=== PATIENT | male | born 1990 ===

== ENCOUNTER 2022-12-02 08:23 | Inpatient (IN) ==
--- NOTE | 2022-12-02 09:08 | XRay Report ---
XR chest 1V portable CLINICAL HISTORY: Chest pain, nonspecific TECHNIQUE: Single frontal radiograph of the chest was obtained. Comparison: None available at the time of this dictation. FINDINGS: No lines and tubes are seen. The cardiomediastinal silhouette is normal. The lungs are clear. No evid ence of pleural effusion or pneumothorax. IMPRESSION: No acute chest disease. ACT 112: Negative or not required by law. Electronically signed by: Mohinder Ball M.D. 12/02/2022 9:07 AM
--- NOTE | 2022-12-02 09:11 | Emergency Department Note ---
Impression & Plan Left-sided chest pain, Pneumothorax, SOB (shortness of breath), Pleuritic chest pain ED Provider Note NAME: SHIRLEY SALINAS AGE: 32 SEX: M : 1990 ARRIVES VIA: Walk-In INFORMANT: [Patient] ED PROVIDER(S): [Aric Sandoval MD] CHIEF COMPLAINT: Chest pain HISTORY OF PRESENT ILLNESS: The patient is a 32-year-old male presents to the ED with left-sided chest pain that radiates into his shoulder blade since yesterday. The patient states that yesterday in the late afternoon, he went for a bike ride, 15 minutes into the ride, he felt this sharp discomfort in the left chest. He now feels a bit short of breath as well. The pain is worse with a deep breath. There has been no cough, no fever. He did not fall or suffer trauma. He has no history of heart or lung disease. No recent sick contacts. PMHx/PSHx: See Below SOCIAL HISTORY: See Below. PHYSICAL EXAM: GENERAL: Patient is in no acute distress. HEENT: No acute trauma, normocephalic atraumatic, mucous membranes moist, no nasal congestion. NECK: No stridor, no adenopathy, no meningismus, trachea is midline. LUNGS: Breath sounds seem somewhat diminished on the left when compared to the right, no wheezing or rhonchi, no respiratory distress. HEART: Without murmurs gallops or rubs, regular rate and rhythm. ABDOMEN: Soft, nontender, bowel sounds positive, no peritonitis. EXTREMITIES: No cyanosis or edema, full range of motion of all the joints without pain or difficulty, no signs for acute trauma. NEUROLOGIC: Oriented x 3, no acute motor or sensory deficits, no focal weakness. SKIN: No rash, no jaundice, no diaphoresis. DIFFERENTIAL DIAGNOSIS: Pneumothorax, musculoskeletal pain, aortic dissection, PE, [place], among others. EMERGENCY DEPARTMENT COURSE/PROCEDURES: Prior/Outside records reviewed: None. ECG per my interpretation: Indication was chest pain. The ECG shows a sinus bradycardia with a rate of 54. There is no ST elevation, no PVCs. The QTc is 398. Continuous Cardiac Monitoring per my interpretation: An order was placed for continuous cardiac monitoring. The monitor shows a rate of 65 with normal sinus rhythm. MEDICAL DECISION MAKING: There is no leukocytosis or concerning anemia. There is a normal platelet count. No coagulopathy. D-dimer is not elevated making PE less likely. With my low suspicion for PE and the negative D-dimer, I will stop the work-up for this diagnosis. There is no renal failure or significant electrolyte abnormality. No concerning liver enzyme elevation. No evidence for pancreatitis. ECG shows a sinus bradycardia, no ischemia. Cardiac enzyme testing x1 is not consistent with acute cardiac injury. COVID test returned negative. Chest x-ray per my review shows a left sided pneumothorax, no tension pneumothorax per my review. On ex am, the patient was not hypoxic or toxic. He did have some diminished breath sounds on the left. The patient did not require anything for pain. He did receive IV saline for hydration. He has been resting comfortably. I spoke with pulmonary/ICU, Dr. Lane. The patient was seen in the ED by Dr. Lane. He did place a small pigtail chest tube. The patient is to be hospitalized. I spoke with the patient about his findings, I spoke with case management, the on-call hospitalist was consulted. DISPOSITION: Patient's presentation and findings warrant a hospital stay. Past Med/Surg History Medical History No significant past medical history Surgical History (Updated 12/02/22 @ 13:12 by Michael Cabral MD) No significant past surgical history Social History Smoking Status: Never smoker Preferred Language: Mohawk Feels Safe at Home: Yes Allergies Allergies Allergy/AdvReac Type Severity Reaction Status Date / Time No Known Allergies Allergy Unverified 12/02/22 10:02 Home Meds Home Medications Medication Instructions Recorded Confirmed cetirizine 10 mg tablet 10 mg PO DAILY PRN Allergy Symptoms 12/02/22 12/02/22 Results & Data (ED) Vital Signs Vital Signs - 24 hr 12/02/22 08:26 12/02/22 08:45 12/02/22 08:42 Temperature 36.0 C L Temperature Source Temporal Artery Scan Pulse Rate 64 59 L Pulse Rate [Apical] Pulse Rate from SpO2 Sensor Respiratory Rate 20 Respiratory Effort / Characteristics Non-Labored Spontaneous Respiratory Depth Normal Blood Pressure 128/76 Blood Pressure Mean 93 Pulse Oximetry 100 96 Oxygen Delivery Method Room Air Room Air Sepsis New/Unexplained Change in Mental Status N/A Sepsis Action Taken by Nursing No Action Required 12/02/22 08:47 12/02/22 08:44 12/02/22 08:50 Temperature Temperature Source Pulse Rate 62 58 L Pulse Rate [Apical] 65 Pulse Rate from SpO2 Sensor 63 61 Respiratory Rate 18 18 23 Respiratory Effort / Characteristics Respiratory Depth Normal Blood Pressure Blood Pressure Mean Pulse Oximetry 98 98 98 Oxygen Delivery Method Room Air Sepsis New/Unexplained Change in Mental Status Sepsis Action Taken by Nursing 12/02/22 09:00 12/02/22 09:10 12/02/22 09:20 Temperature Temperature Source Pulse Rate 58 L 56 L 59 L Pulse Rate [Apical] Pulse Rate from SpO2 Sensor 56 L 55 L 58 L Respiratory Rate 15 15 18 Respiratory Effort / Characteristics Respiratory Depth Blood Pressure Blood Pressure Mean Pulse Oximetry 99 99 99 Oxygen Delivery Method Sepsis New/Unexplained Change in Mental Status Sepsis Action Taken by Nursing 12/02/22 09:30 12/02/22 09:40 12/02/22 09:50 Temperature Temperature Source Pulse Rate 55 L 56 L 66 Pulse Rate [Apical] Pulse Rate from SpO2 Sensor 55 L 56 L 65 Respiratory Rate 19 18 23 Respiratory Effort / Characteristics Respiratory Depth Blood Pressure Blood Pressure Mean Pulse Oximetry 98 99 99 Oxygen Delivery Method Sepsis New/Unexplained Change in Mental Status Sepsis Action Taken by Nursing 12/02/22 10:00 12/02/22 10:42 12/02/22 10:10 Temperature Temperature Source Pulse Rate 71 63 53 L Pulse Rate [Apical] Pulse Rate from SpO2 Sensor 67 53 L Respiratory Rate 21 16 22 Respiratory Effort / Characteristics Respiratory Depth Blood Pressure Blood Pressure Mean Pulse Oximetry 100 96 100 Oxygen Delivery Method Room Air Sepsis New/Unexplained Change in Mental Status Sepsis Action Taken by Nursing 12/02/22 10:20 12/02/22 10:30 12/02/22 10:40 Temperature Temperature Source Pulse Rate 62 54 L 64 Pulse Rate [Apical] Pulse Rate from SpO2 Sensor 62 55 L 64 Respiratory Rate 17 14 14 Respiratory Effort / Characteristics Respiratory Depth Blood Pressure 136/89 Blood Pressure Mean 104 Pulse Oximetry 100 98 98 Oxygen Delivery Method Sepsis New/Unexplained Change in Mental Status Sepsis Action Taken by Nursing 12/02/22 10:42 12/02/22 10:44 12/02/22 10:45 Temperature Temperature Source Pulse Rate 63 64 54 L Pulse Rate [Apical] Pulse Rate from SpO2 Sensor 62 63 57 L Respiratory Rate 22 20 18 Respiratory Effort / Characteristics Respiratory Depth Blood Pressure Blood Pressure Mean Pulse Oximetry 100 98 100 Oxygen Delivery Method Sepsis New/Unexplained Change in Mental Status Sepsis Action Taken by Nursing 12/02/22 10:45 12/02/22 10:46 12/02/22 10:48 Temperature Temperature Source Pulse Rate 64 68 Pulse Rate [Apical] Pulse Rate from SpO2 Sensor 69 66 Respiratory Rate 20 22 Respiratory Effort / Characteristics Respiratory Depth Blood Pressure 139/88 Blood Pressure Mean 105 Pulse Oximetry 100 98 Oxygen Delivery Method Sepsis New/Unexplained Change in Mental Status Sepsis Action Taken by Nursing 12/02/22 10:50 12/02/22 10:52 12/02/22 10:54 Temperature Temperature Source Pulse Rate 62 62 52 L Pulse Rate [Apical] Pulse Rate from SpO2 Sensor 64 63 53 L Respiratory Rate 14 15 12 Respiratory Effort / Characteristics Respiratory Depth Blood Pressure Blood Pressure Mean Pulse Oximetry 98 100 100 Oxygen Delivery Method Sepsis New/Unexplained Change in Mental Status Sepsis Action Taken by Nursing 12/02/22 10:56 12/02/22 10:58 12/02/22 11:00 Temperature Temperature Source Pulse Rate 58 L 60 64 Pulse Rate [Apical] Pulse Rate from SpO2 Sensor 58 L 61 62 Respiratory Rate 17 20 15 Respiratory Effort / Characteristics Respiratory Depth Blood Pressure Blood Pressure Mean Pulse Oximetry 100 99 100 Oxygen Delivery Method Sepsis New/Unexplained Change in Mental Status Sepsis Action Taken by Nursing 12/02/22 11:02 12/02/22 11:04 12/02/22 11:06 Temperature Temperature Source Pulse Rate 56 L 55 L 63 Pulse Rate [Apical] Pulse Rate from SpO2 Sensor 60 55 L 64 Respiratory Rate 19 22 23 Respiratory Effort / Characteristics Respiratory Depth Blood Pressure Blood Pressure Mean Pulse Oximetry 100 99 98 Oxygen Delivery Method Sepsis New/Unexplained Change in Mental Status Sepsis Action Taken by Nursing 12/02/22 11:08 12/02/22 11:10 12/02/22 11:12 Temperature Temperature Source Pulse Rate 68 61 71 Pulse Rate [Apical] Pulse Rate from SpO2 Sensor 63 64 68 Respiratory Rate 18 16 20 Respiratory Effort / Characteristics Respiratory Depth Blood Pressure Blood Pressure Mean Pulse Oximetry 100 100 93 Oxygen Delivery Method Sepsis New/Unexplained Change in Mental Status Sepsis Action Taken by Nursing 12/02/22 11:14 12/02/22 11:16 12/02/22 11:18 Temperature Temperature Source Pulse Rate 73 60 77 Pulse Rate [Apical] Pulse Rate from SpO2 Sensor 72 62 78 Respiratory Rate 23 18 21 Respiratory Effort / Characteristics Respiratory Depth Blood Pressure Blood Pressure Mean Pulse Oximetry 100 98 96 Oxygen Delivery Method Sepsis New/Unexplained Change in Mental Status Sepsis Action Taken by Nursing 12/02/22 11:20 12/02/22 11:22 12/02/22 11:24 Temperature Temperature Source Pulse Rate 66 57 L 65 Pulse Rate [Apical] Pulse Rate from SpO2 Sensor 65 59 L 68 Respiratory Rate 20 16 17 Respiratory Effort / Characteristics Respiratory Depth Blood Pressure Blood Pressure Mean Pulse Oximetry 95 100 99 Oxygen Delivery Method Sepsis New/Unexplained Change in Mental Status Sepsis Action Taken by Nursing 12/02/22 11:26 12/02/22 11:28 12/02/22 11:30 Temperature Temperature Source Pulse Rate 63 68 56 L Pulse Rate [Apical] Pulse Rate from SpO2 Sensor 69 67 63 Respiratory Rate 14 23 18 Respiratory Effort / Characteristics Respiratory Depth Blood Pressure Blood Pressure Mean Pulse Oximetry 94 100 100 Oxygen Delivery Method Sepsis New/Unexplained Change in Mental Status Sepsis Action Taken by Nursing 12/02/22 11:32 12/02/22 11:34 12/02/22 11:35 Temperature Temperature Source Pulse Rate 62 63 59 L Pulse Rate [Apical] Pulse Rate from SpO2 Sensor 68 62 59 L Respiratory Rate 20 23 15 Respiratory Effort / Characteristics Respiratory Depth Blood Pressure Blood Pressure Mean Pulse Oximetry 92 99 99 Oxygen Delivery Method Sepsis New/Unexplained Change in Mental Status Sepsis Action Taken by Nursing 12/02/22 11:35 12/02/22 11:36 Temperature Temperature Source Pulse Rate 56 L Pulse Rate [Apical] Pulse Rate from SpO2 Sensor 57 L Respiratory Rate 17 Respiratory Effort / Characteristics Respiratory Depth Blood Pressure 169/85 H Blood Pressure Mean 113 Pulse Oximetry 100 Oxygen Delivery Method Sepsis New/Unexplained Change in Mental Status Sepsis Action Taken by Correction Medications Current Medication List: was personally reviewed by me Laboratory Data Attestation: I reviewed the patient's lab results. 12/02/22 08:50 12/02/22 08:50 Lab Results 12/02/22 12/02/22 12/02/22 Range/Units 08:50 08:50 08:50 WBC 7.66 (4.8-10.8) K/ul RBC 5.21 (4.70-6.10) M/uL Hgb 16.3 (14.0-18.0) g/dl Hct 47.2 (42.0-52.0) % MCV 90.6 (80.0-100.0) fL MCH 31.3 (25.0-34.0) pg MCHC 34.5 (32.0-36.0) g/dL RDW Std Deviation 41.3 (36.4-46.3) fL RDW Coeff of Iris 12.5 (11.5-14.5) % Plt Count 232 (130-400) K/uL MPV 10.3 (9.4-12.4) fL Immature Gran % (Auto) 0.3 % Neut % (Auto) 65.1 % Lymph % (Auto) 21.9 % Barry % (Auto) 6.5 % Eos % (Auto) 5.5 % Baso % (Auto) 0.7 % Neut # (Auto) 4.99 (1.40-6.50) K/uL Lymph # (Auto) 1.68 (1.2-3.4) K/uL Barry # (Auto) 0.50 (0.11-0.59) K/uL Eos # (Auto) 0.42 (0-0.50) K/uL Baso # (Auto) 0.05 (0-0.2) K/uL Immature Gran # (Auto) 0.02 (0.01-0.20) K/uL PT 11.6 (9.0-12.0) Seconds INR 1.1 (0.9-1.1) APTT 27.7 (21.0-31.0) Seconds PTT Ratio 1.0 D-Dimer < 190 (0-500) ug/L FEU Sodium 140 (136-145) mmol/L Potassium 4.0 (3.5-5.1) mmol/L Chloride 104 (98-107) mmol/L Carbon Dioxide 29 (21-32) mmol/L Anion Gap 7 (3-11) BUN 23 (6-23) mg/dl Creatinine 0.95 (0.6-1.4) mg/dl Est Cr Clr Drug Dosing 99.1 ml/min Est GFR ( Amer) 123.1 ml/min Est GFR (Non-Af Amer) 106.2 ml/min BUN/Creatinine Ratio 24.2 H (10-20) Glucose 82 (70-99(Fasting)) mg/dl Calcium 9.5 (8.6-10.3) mg/dl Magnesium 2.0 (1.7-2.4) mg/dl Total Bilirubin 0.7 (0.2-1.0) mg/dl AST 20 (13-39) U/L ALT 21 (7-52) U/L Alkaline Phosphatase 48 (34-104) U/L Troponin I High Sens 18.8 (0-20) pg/ml Total Protein 7.5 (6.0-8.3) gm/dl Albumin 5.0 (3.4-5.0) gm/dl Globulin 2.5 (2.5-4.0) gm/dl Albumin/Globulin Ratio 2.0 (0.9-2) Lipase 11 (11-82) U/L SARS-CoV-2, RNA, NAAT (NEGATIVE) 12/02/22 Range/Units 08:50 WBC (4.8-10.8) K/ul RBC (4.70-6.10) M/uL Hgb (14.0-18.0) g/dl Hct (42.0-52.0) % MCV (80.0-100.0) fL MCH (25.0-34.0) pg MCHC (32.0-36.0) g/dL RDW Std Deviation (36.4-46.3) fL RDW Coeff of Iris (11.5-14.5) % Plt Count (130-400) K/uL MPV (9.4-12.4) fL Immature Gran % (Auto) % Neut % (Auto) % Lymph % (Auto) % Barry % (Auto) % Eos % (Auto) % Baso % (Auto) % Neut # (Auto) (1.40-6.50) K/uL Lymph # (Auto) (1.2-3.4) K/uL Barry # (Auto) (0.11-0.59) K/uL Eos # (Auto) (0-0.50) K/uL Baso # (Auto) (0-0.2) K/uL Immature Gran # (Auto) (0.01-0.20) K/uL PT (9.0-12.0) Seconds INR (0.9-1.1) APTT (21.0-31.0) Seconds PTT Ratio D-Dimer (0-500) ug/L FEU Sodium (136-145) mmol/L Potassium (3.5-5.1) mmol/L Chloride (98-107) mmol/L Carbon Dioxide (21-32) mmol/L Anion Gap (3-11) BUN (6-23) mg/dl Creatinine (0.6-1.4) mg/dl Est Cr Clr Drug Dosing ml/min Est GFR ( Amer) ml/min Est GFR (Non-Af Amer) ml/min BUN/Creatinine Ratio (10-20) Glucose (70-99(Fasting)) mg/dl Calcium (8.6-10.3) mg/dl Magnesium (1.7-2.4) mg/dl Total Bilirubin (0.2-1.0) mg/dl AST (13-39) U/L ALT (7-52) U/L Alkaline Phosphatase (34-104) U/L Troponin I High Sens (0-20) pg/ml Total Protein (6.0-8.3) gm/dl Albumin (3.4-5.0) gm/dl Globulin (2.5-4.0) gm/dl Albumin/Globulin Ratio (0.9-2) Lipase (11-82) U/L SARS-CoV-2, RNA, NAAT NEGATIVE (NEGATIVE) Administered Medications Discontinued Medications Atropine Sulfate (Atropine So4 1 Mg/Ml 1ml Vial) Confirm Administered Dose 1 mg .ROUTE .STK-MED ONE Stop: 12/02/22 11:21 Last Admin: 12/02/22 12:52 Dose: Not Given Documented By: ARS Sodium Chloride (Nss 1000ml) 1,000 mls @ 999 mls/hr IV .Q1H1M ONE Stop: 12/02/22 12:15 Last Infusion: 12/02/22 14:24 Dose: 0 mls/hr Documented By: Admin: 12/02/22 11:21 Dose: 999 mls/hr Documented By: JD Lidocaine HCl (Lidocaine 1% Local 20 Ml Vial) Confirm Administered Dose 1 ml .RO SALAMATOF .STK-MED ONE Stop: 12/02/22 11:42 Last Admin: 12/02/22 12:01 Dose: Not Given Documented By: AM Lidocaine HCl (Lidocaine 1% Local 20 Ml Vial) 20 ml INJ NOW ONE Stop: 12/02/22 11:52 Last Admin: 12/02/22 11:45 Dose: 20 ml Documented By: AM Imaging Data Radiologist's Impression: Chest X-Ray 12/02/22 08:42 XR chest 1V portable CLINICAL HISTORY: Chest pain, nonspecific TECHNIQUE: Single frontal radiograph of the chest was obtained. Comparison: None available at the time of this dictation. FINDINGS: No lines and tubes are seen. The cardiomediastinal silhouette is normal. The lungs are clear. No evidence of pleural effusion or pneumothorax. IMPRESSION: No acute chest disease. ACT 112: Negative or not required by law. Electronically signed by: Mohinder Ball M.D. 12/02/2022 9:07 AM ADDENDUM There is a prominent left apical pneumothorax measuring up to 4.9 cm. Electronically signed by: Mohinder Ball M.D. 12/02/2022 9:26 AM ADDENDUM END XR chest 1V portable CLINICAL HISTORY: Chest pain, nonspecific TECHNIQUE: Single frontal radiograph of the chest was obtained. Comparison: None available at the time of this dictation. FINDINGS: No lines and tubes are seen. The cardiomediastinal silhouette is normal. The lungs are clear. No evidence of pleural effusion or pneumothorax. IMPRESSION: No acute chest disease. Discharge Plan Visit Data Chief Complaint: Chest Pain Stated Complaint: CHEST PAINS,COUGHING,SOB ED Provider: Aric Sandoval Discharge Problem: Left-sided chest pain, Pneumothorax, SOB (shortness of breath), Pleuritic chest pain Patient Disposition: Admitted As Inpatient Condition: Good Discharge Instructions Interventions: ED Discharge Assessment Last Done: 12/02/22 13:52
[2022-12-02 09:16] LABS: Basophils # (auto) 0.05 K/uL (0-0.2); Basophils % (auto) 0.7 %; Eosinophils # (auto) 0.42 K/uL (0-0.50); Eosinophils % (auto) 5.5 %; Hematocrit (blood only) 47.2 % (42.0-52.0); Hemoglobin 16.3 g/dl (14.0-18.0); Immature Granulocytes # (auto) 0.02 K/uL (0.01-0.20); Immature Granulocytes % (auto) 0.3 %; Lymphocytes # (auto) 1.68 K/uL (1.2-3.4); Lymphocytes % (auto) 21.9 %; Mean Corpuscular Hemoglobin 31.3 pg (25.0-34.0); Mean Corpuscular Hgb Conc 34.5 g/dL (32.0-36.0); Mean Corpuscular Volume 90.6 fL (80.0-100.0); Mean Platelet Volume 10.3 fL (9.4-12.4); Monocytes % (auto) 6.5 %; Neutrophils # (auto) 4.99 K/uL (1.40-6.50); Neutrophils % (auto) 65.1 %; Platelet Count 232 K/uL (130-400); RDW Coefficient of Variation 12.5 % (11.5-14.5); RDW Standard Deviation 41.3 fL (36.4-46.3); Red Blood Count 5.21 M/uL (4.70-6.10); White Blood Count 7.66 K/ul (4.8-10.8)
[2022-12-02 09:31] LABS: Bilirubin,Total 0.7 mg/dl (0.2-1.0); Calcium 9.5 mg/dl (8.6-10.3)
--- NOTE | 2022-12-02 09:31 | Pulmonary Consultation ---
Date of Consultation December 02, 2022 Assessment & Plan (1) Primary spontaneous pneumothorax: (2) Chest pain: Plan Chest x-ray 12/02/2022 personally reviewed: Portable film, left-sided pneumothorax, lateral separation of 1.1 cm -- Primary spontaneous pneumothorax S/p chest tube placement 12/02/2022 Patient should avoid scuba diving, flying, heavy lifting for at least 6 weeks Plan:- Chest tube placed in the ER. Patient tolerated the procedure well [facility] If there is still apical pneumothorax on the repeat chest x-ray then we will connected to -20 cm H2O suction We will do CT chest without contrast tomorrow to see if the patient has any apical blebs Please note the above document was generated using voice recognition software. It may contain grammatical, syntax or spelling errors.Any formal questions or concerns about the content, text or information contained within the body of this dictation should be directly addressed to the provider for clarification. History of Present Illness History of Present Illness 32-year-old male coming to hospital for chest pain left-sided Past medical history: Noncontributory Patient had a chest x-ray done in the ER which showed left-sided pneumothorax ER doc consulted pulmonary for further care At the time of examination patient was saturating 99% on 2 L nasal cannula. He complained of retrosternal left-sided chest pain going to the back. It started yesterday when he was bicycling. Denies any history of trauma. No heavy lifting He does workout on a regular basis which is usually running and bicycling Never had any instance like that before in the past No fever or chills No headache, no blurry vision No night sweats, no unintentional weight loss No known history of ILD Social history: Lifetime non-smoker. No vaping, no illicit drug use. No history of asthma History of COPD in the family especially paternal side who are smokers Allergies Allergy/AdvReac Type Severity Reaction Status Date / Time No Known Allergies Allergy Unverified 12/02/22 10:02 Home Medications Medication Instructions Recorded Confirmed Type cetirizine 10 mg tablet 10 mg PO DAILY PRN Allergy Symptoms 12/02/22 12/02/22 History Patient History Medical History (Updated 12/02/22 @ 15:[address] MD, FCCP) No significant past medical history Surgical History (Updated 12/02/22 @ 13:12 by Michael Cabral MD) No significant past surgical history Social History Smoking Status: Never smoker Preferred Language: Kenyan Feels Safe at Home: Yes Review of Systems Review of Systems: All systems reviewed & are unremarkable except as noted in HPI & below Physical Exam Physical Exam: Constitutional: No acute distress HEENT: EOMI, PERRLA, no subcu emphysema Respiratory system: Mild decreased air entry on the left, no wheeze, no rhonchi, no crackles CVS: S1-S2 positive, no murmurs or gallops Abdomen: Soft, nontender, nondistended, positive bowel sounds x4 Extremities: +2 pulses bilaterally radialis/ dorsalis pedis, no cyanosis, no edema Neuro: Awake alert oriented x3 Psych: Normal mood and affect G/U: No Jimenes Skin: no rashes, warm and dry Lymphatic: no cervical or axillary lymphadenopathy Results & Data Results & Data Vital Signs (Past 12 Hours) Vital Signs Temp Pulse Pulse Resp BP Pulse Ox O2 Del Method 12/02/22 08:47 65 18 98 Room Air 12/02/22 08:42 96 Room Air 12/02/22 08:45 59 L 12/02/22 08:26 36.0 C L 64 20 128/76 100 Room Air Laboratory Results 12/02/22 08:50 PG Care Time/CCT Total # of Minutes Spent Total Time Spent with Patient: Total time spent is greater than 50% in coordination of care (as documented) at patient's floor/unit and/or counseling patient: Coding Level of Care Code 83350 INT INP/OBS CARE 3/75MIN Diagnoses Primary spontaneous pneumothorax J93.11 Chest pain R07.9
[2022-12-02 09:38] LABS: BUN Creatinine Ratio 24.2 (10-20); Creatinine Clr Calc Pharmacy 99.1 ml/min; Est GFR (African American) 123.1 ml/min; Est GFR (Non-African American) 106.2 ml/min; Globulin 2.5 gm/dl (2.5-4.0); Total Protein 7.5 gm/dl (6.0-8.3)
[2022-12-02 09:42] LABS: Troponin I High Sensitivity 18.8 pg/ml (0-20)
[2022-12-02 09:48] LABS: D Dimer < 190 ug/L FEU (0-500); INR 1.1 (0.9-1.1); Partial Thromboplastin Time 27.7 Seconds (21.0-31.0); Prothrombin Time 11.6 Seconds (9.0-12.0)
[2022-12-02] MEDS ORDERED: SODIUM CHLORIDE 0.9% 1000ML 1,000 ML IV ONE (11:15)
[2022-12-02] MEDS ORDERED: ATROPINE SULFATE 0.1 MG/ML 10ML SYR IV PRN (11:15)
[2022-12-02] MEDS ORDERED: ATROPINE SO4 1 MG/ML 1ML VIAL ONE (11:20)
--- NOTE | 2022-12-02 11:36 | History & Physical Report ---
Date of Service December 02, 2022 Assessment & Plan (1) Primary spontaneous pneumothorax: Plan: Pigtail chest tube inserted by pulmonology. Repeat CXR show improvement. Appreciate pulmonology ongoing management of this. Acetaminophen as needed for pain, will add NSAID if not controlled with this Plan VTE Prophylaxis - low risk Diet - regular Disposition - admit to med/tele Admission and Anticipated Discharge Date Admission Date: December 02, 2022 History of Present Illness Chief Complaint: Chest pain Primary Care Provider: NO PCP Chip Lorenzana is a 32 year old male who presents to the ER with chest pain. Started yesterday while riding his bike on the left side of his chest radiating to his left shoulder blade. Mild associated shortness of breath. No diaphoresis or nausea. CXR in the ER showing left sided pneumothorax. he has never had this before. No recent upper respiratory illness. No vaping or smoking history. Pulmonology were contacted and pigtail chest tube inserted. Patient seen after chest tube insertion and doing well. Two grandparents with COPD but otherwise no significant family history. Allergies Allergy/AdvReac Type Severity Reaction Status Date / Time No Known Allergies Allergy Unverified 12/02/22 10:02 Home Medications Medication Instructions Recorded Confirmed Type cetirizine 10 mg tablet 10 mg PO DAILY PRN Allergy Symptoms 12/02/22 12/02/22 History Past Med/Surg History Medical History (Updated 12/02/22 @ 13:12 by Michael Cabral MD) No significant past medical history Surgical History (Updated 12/02/22 @ 13:12 by Michael Cabral MD) No significant past surgical history Social History Smoking Status: Never smoker Preferred Language: Maltese Feels Safe at Home: Yes Review of Systems Review of Systems: All systems reviewed & are unremarkable except as noted in HPI & below Physical Exam Constitutional: WD/WN, vitals as above Respiratory: normal respiratory effort; no respiratory distress Auscultation: + diminished lung sounds (left apex); no crackles and no wheezes Cardiovascular: RRR, no murmur, no edema Gastrointestinal (Abdomen): normal bowel sounds, soft, nontender, no hepatosplenomegaly Psychiatric: A+Ox3, euthymic affect Results & Data Results & Data Vital Signs (Past 12 Hours) Vital Signs Temp Pulse Pulse Resp BP Pulse Ox O2 Del Method 12/02/22 10:40 64 14 136/89 98 12/02/22 10:30 54 L 14 98 12/02/22 10:20 62 17 100 12/02/22 10:10 53 L 22 100 12/02/22 10:42 63 16 96 Room Air 12/02/22 10:00 71 21 100 12/02/22 09:50 66 23 99 12/02/22 09:40 56 L 18 99 12/02/22 09:30 55 L 19 98 12/02/22 09:20 59 L 18 99 12/02/22 09:10 56 L 15 99 12/02/22 09:00 58 L 15 99 12/02/22 08:50 58 L 23 98 12/02/22 08:44 62 18 98 12/02/22 08:47 65 18 98 Room Air 12/02/22 08:42 96 Room Air 12/02/22 08:45 59 L 12/02/22 08:26 36.0 C L 64 20 128/76 100 Room Air Laboratory Results Abnormal lab results 12/02/22 Range/Units 08:50 BUN/Creatinine Ratio 24.2 H (10-20) Diagnostic Findings ADDENDUM There is a prominent left apical pneumothorax measuring up to 4.9 cm. Electronically signed by: Mohinder Ball M.D. 12/02/2022 9:26 AM ADDENDUM END XR chest 1V portable CLINICAL HISTORY: Chest pain, nonspecific TECHNIQUE: Single frontal radiograph of the chest was obtained. Comparison: None available at the time of this dictation. FINDINGS: No lines and tubes are seen. The cardiomediastinal silhouette is normal. The lungs are clear. No evidence of pleural effusion or pneumothorax. IMPRESSION: No acute chest disease. Medications Administered ER Medications Given: NSS 1L bolus ECG Rate (beats per minute): 54 Rhythm: sinus bradycardia Findings: no acute ischemic change Comparison ECG Date: no prior available Code Status & VTE Plan Code Status Full VTE Prophylaxis Plan VTE Prophylaxis will be ordered: No PG Care Time/CCT Total # of Minutes Spent Total Time Spent with Patient: Total time spent is greater than 50% in coordination of care (as documented) at patient's floor/unit and/or counseling patient: Coding Level of Care Code 92139 INT INP/OBS CARE Diagnoses Primary spontaneous pneumothorax J93.11
[2022-12-02] MEDS ORDERED: LIDOCAINE 1% LOCAL 20 ML VIAL ONE (11:41)
[2022-12-02] MEDS ORDERED: LIDOCAINE 1% LOCAL 20 ML VIAL INJ ONE (11:51)
--- NOTE | 2022-12-02 12:13 | Procedure Note ---
Procedure Note Date of Service December 02, 2022 Note Procedure: Pigtail chest tube insertion [employer] Sergeant: Dr. Karen Lane Indication: Left-sided pneumothorax Consent: Signed by patient and verified with timeout prior to procedure Anesthesia: 1% lidocaine without epinephrine local Procedure: Consent was verified and timeout performed. Appropriate imaging studies were reviewed prior to the procedure. Patient was placed in a seated position. Appropriate site above the diaphragm on the left midaxillary line fourth intercostal space for chest tube insertion was selected. The skin was prepped and draped in normal sterile fashion. Lidocaine was used for local analgesia. Air was aspirated via the finder needle. A small skin ada was made with the scalpel and the catheter over the needle apparatus was advanced over the rib into the pleural space. With the help of guidewire and Seldinger technique, 14 Prydeinig pigtail catheter was inserted and connected to Pleur-evac. No air leak appreciated after that. Chest x-ray to follow The patient tolerated the procedure without obvious complication Complications: None Blood loss: Less than 1 cc. Coding CPT Codes Pulmonary/Thoracic - Pulmonary and Thoracic: 09510 Tube thoracostomy ([id number]) [facility] [place] ([place]arges) Pulmonary/Thoracic Procedure 1: Pulmonary and Thoracic: 70905 Tube thoracostomy
--- NOTE | 2022-12-02 12:23 | XRay Report ---
XR chest 1V portable HISTORY: 32 years-old Male s/p RIGHT sided chest tube status post placement of a left-sided chest tu be COMPARISON: 12/02/2022 TECHNIQUE: AP view of the chest FINDINGS: Cardiomediastinal and hilar silhouettes are within normal limits. Status post placement of a left-boubacar ed chest tube with distal tip projected inferior to the left hilum. There is decreased size of left a pical pneumothorax now with pleural separation of 2.1 cm, previously approximately 5 cm. Bones appear grossly intact. No pleural effusion or airspace consolidation. IMPRESSION: Status post placement of a left-sided chest tube with small left apical pneumothorax, dec reased in size from comparison. ACT 112: Negative or not required by law. The above report was generated using voice recognition software. It may contain grammatical, syntax o r spelling errors. Electronically signed by: Elie Willard M.D. 12/02/2022 12:22 PM
[2022-12-02] MEDS ORDERED: CETIRIZINE HCL 10 MG TABLET PO PRN (14:22)
[2022-12-02] MEDS: ACETAMINOPHEN 325 MG TAB PO PRN ×2 (15:11→20:39)
[2022-12-02] MEDS: KETOROLAC TROMETHAMINE 15 MG/ML VIAL IV PRN (17:50)
[2022-12-03] MEDS: KETOROLAC TROMETHAMINE 15 MG/ML VIAL IV PRN ×3 (00:28→18:15)
--- NOTE | 2022-12-03 05:34 | Electrocardiogram Report ---
Test Reason : Blood Pressure : / mmHG Vent. Rate : 054 BPM Atrial Rate : 054 BPM P-R Int : 160 ms QRS Dur : 092 ms QT Int : 420 ms P-R-T Axes : 067 071 070 degrees QTc Int : 398 ms Sinus bradycardia Otherwise normal ECG No previous ECGs available Confirmed by Mart Ramires ([id number]) on 12/03/2022 5:34:02 AM Referred By: Confirmed By:Mart Ramires
--- NOTE | 2022-12-03 08:16 | XRay Report ---
XR chest 1V portable HISTORY: 32 years-old Male f/u follow-up study in a patient with left-sided pneumothorax COMPARISON: 12/02/2022 TECHNIQUE: AP view of the chest FINDINGS: The left-sided chest tube has been pulled back, now with distal tip overlying the lateral aspect of l eft lung base. Left apical pneumothorax again noted with pleural separation of 3.5 cm, previously alejandra roximately 2.1 cm. The cardiomediastinal and hilar silhouettes are within normal limits. The right guillermina ng is clear. No pleural effusion or airspace consolidation. Bones appear grossly intact. IMPRESSION: Repositioning of the left-sided chest tube with slightly increased size of the left apica l pneumothorax. ACT 112: Negative or not required by law. The above report was generated using voice recognition software. It may contain grammatical, syntax o r spelling errors. Electronically signed by: Elie Willard M.D. 12/03/2022 8:15 AM
--- NOTE | 2022-12-03 10:57 | Pulmonology Progress Note ---
Date of Service December 03, 2022 Assessment & Plan (1) Primary spontaneous pneumothorax: (2) Pneumothorax: Pneumothorax type: spontaneous, primary Qualified Code(s): J93.11 - Primary spontaneous pneumothorax (3) SOB (shortness of breath): (4) Left-sided chest pain: Plan IMPRESSION: 32-year-old male presenting with primary spontaneous LEFT-sided pneumothorax who is status post pigtail catheter placement yesterday. RECOMMENDATIONS: 1. Primary spontaneous pneumothorax - * Chest x-ray this morning reveals persistent LEFT-sided apical pneumothorax. Chest tube migrated out a bit. * Chest tube to be repositioned. * CT Chest ordered for further evaluation of lung parenchyma. * There continues to be no airleak. He remains on -20 cm H2O suction. * Otherwise, he is doing well and without significant pain. Thank you for allowing us to participate in the care of this patient. We will continue to manage pneumothorax. Admission and Anticipated Discharge Date Admission Date: December 02, 2022 Supervising Physician Co-Signing Physician Notes I saw and evaluated the patient with Byron Cedillo PA-C, and agree with findings and plan as documented in the note. Patient seen and examined at bedside. No acute distress, no adverse events overnight Denied any significant chest pain, no shortness of breath Mild discomfort at the site of the chest tube Patient's tube was connected to suction -20. There was no continuous bubbling. Constitutional: No acute distress HEENT: EOMI, PERRLA,no subcu emphysema Respiratory system:Good air entry bilaterally, no wheeze, no rhonchi, no crackles CVS: S1-S2 positive, no murmurs or gallops Abdomen: Soft, nontender, nondistended, positive bowel sounds x4 Extremities: +2 pulses bilaterally radialis/ dorsalis pedis, no cyanosis, no edema Neuro: Awake alert oriented x3 Psych: Normal mood and affect G/U: No Jimenes Plan: Chest x-ray from today shows retraction of the chest tube little bit. It is still in the pleural space. I reposition the tube and dressed it with aseptic precaution We will do a CT chest without contrast today to see if there is anatomical abnormality Please note the above document was generated using voice recognition software. It may contain grammatical, syntax or spelling errors.Any formal questions or concerns about the content, text or information contained within the body of this dictation should be directly addressed to the provider for clarification. Subjective Patient seen and evaluated by myself bedside. He is awake, alert, and oriented. He complains of some ongoing LEFT-sided chest discomfort which is worse with deep inspiration. It is unchanged from prior. Otherwise, he had a great night and states that he was able to sleep with laying on his RIGHT side. Review of Systems Review of Systems: A complete 6 point review of systems was reviewed with the patient with pertinent positives and negatives as per history of present illness. All else were negative. Physical Exam Physical Exam: VITAL SIGNS - Vital signs and nursing notes were reviewed. GENERAL - 32-year-old male appearing his stated age who is in no acute distress. Communicates well with provider and answers questions appropriately. SKIN - LEFT sided chest tube dressing clean, dry, and intact. LUNGS - LEFT sided chest tube in place. No air leak appreciated. Auscultation reveals clear to auscultation bilaterally. CARDIAC - RRR with S1/S2. No murmur, rubs, or gallops appreciated. ABDOMEN - BS normoactive all four quadrants. No tenderness, palpable masses, or ascites noted. PSYCH - A&Ox3 and cooperates fully with examiner. Pt is very pleasant and interacts well with examiner. Skin: no rashes, warm and dry Lymphatic: no cervical or axillary lymphadenopathy Results & Data Results & Data Vital Signs (Past 12 Hours) Vital Signs Temp Pulse Pulse Resp BP Pulse Ox O2 Del Method 12/03/22 08:20 36.7 C 87 16 158/100 H 98 Room Air 12/03/22 06:00 41 L 12/03/22 03:15 36.5 C 43 L 18 109/70 98 Room Air 12/02/22 23:32 53 L Laboratory Results 12/02/22 08:50 12/02/22 08:50 PG Care Time/CCT Total # of Minutes Spent Total Time Spent with Patient: Total time spent is greater than 50% in coordination of care (as documented) at patient's floor/unit and/or counseling patient: Coding Level of Care Code 03138 SUB INP/OBS CARE 3/50MIN Diagnoses Primary spontaneous pneumothorax J93.11 Pneumothorax J93.11 Pneumothorax type: spontaneous, primary SOB (shortness of breath) R06.02 Left-sided chest pain R07.9
--- NOTE | 2022-12-03 12:42 | CT Scan Report ---
CT OF THE CHEST WITHOUT IV CONTRAST CLINICAL HISTORY: Reposition chest tube, verify placement, PTX COMPARISON STUDY: Chest radiographs December 02, 2022 and December 03, 2022 at 7:[address] DOSE: 422.98 mGy.cm TECHNIQUE: Axial images of the chest were obtained without IV contrast. Images were reviewed in the axial, sagittal, and coronal planes. IV contrast was not administered for this examination. Automat ed exposure control was utilized for the study. A dose lowering technique was utilized adhering to t he principles of ALARA. FINDINGS: Interval repositioning of the left chest tube is noted. The chest tube is within the later al left mid hemithorax and is well-positioned. A small residual left pneumothorax is present. Subpleu ral opacities reflect atelectasis. No consolidation to suggest pneumonia. Central airways are patent. There is no right pneumothorax. No definite bleb or bulla within the left lung is noted to suggest t he etiology for the pneumothorax. Visualized portions of the upper abdomen are unremarkable on this u nenhanced examination. No fractures within the bony thorax. A 1.9 cm right lobe thyroid nodule is not ed. IMPRESSION: 1. Interval repositioning of the left chest tube which is well-positioned. Small residual left pneumo thorax. 2. Subpleural opacities within the lungs consistent with atelectasis. 3. No bleb or bulla within the left lung identified. 4. 1.9 cm hypodense right lobe thyroid nodule. Nonemergent thyroid ultrasound could be obtained for f urther evaluation. ACT 112: Negative or not required by law. Electronically signed by: Da Cevallos M.D. 12/03/2022 12:41 PM
--- NOTE | 2022-12-03 19:55 | Hospitalist Progress Note ---
Date of Service December 03, 2022 Assessment & Plan (1) Primary spontaneous pneumothorax: Plan: s/p chest tube on left. appreciate pulmonary consultation & management of his CT. defer management to them. etiology of spontaneous pneumothorax uncertain. no obvious bleb(s) seen on today's CT. no recent illness. does not smoke or vape. no recent trauma, no rib fractures, etc. no h/o lung disease. no overt features of connective tissue disease. valsalva/increased intra-thoracic pressure while bike riding?? repeat cxr in am. pain control. (2) Thyroid nodule greater than or equal to 1.5 cm in diameter incidentally noted on imaging study: Plan: right sided 1.9cm thyroid nodule discussed this in detail with him will check TFTs in am send to [facility] [place] [place] Endocrinology at discharge for additional work-up, ?biopsy, etc he has no overt symptoms of hyperthyroidism from this nodule Plan DVT proph - very low risk, defer on chemical DVT proph Admission and Anticipated Discharge Date Admission Date: December 02, 2022 Subjective patient continues with air leak thus chest tube placed back to suction today during my visit he reports mild pain with taking deep breaths but is otherwise comfortable he denies any recent respiratory illness in the weeks leading up to this admission denies recent COVID illness denies tobacco we discussed his CT results today including the thyroid nodule denies any dysphagia or ant neck pain/tenderness eating well Review of Systems Review of Systems: cv - pain related to chest tube only pulm - denies dyspnea GI - denies nausea Physical Exam Physical Exam: gen - WD, WN, NAD neck - right sided thyroid nodule - nontender heart - RRR, s1 s2, no murmur lungs - mildly decreased BS left base, otherwise CTA b/l; left-sided chest tube in place abd - soft NT ND BS+ ext - no edema, pulses 2+ b/l Results & Data Results & Data Vital Signs (Past 12 Hours) Vital Signs Temp Pulse Pulse Resp BP Pulse Ox O2 Del Method 12/03/22 14:04 65 12/03/22 14:53 36.7 C 69 18 145/71 H 98 Room Air 12/03/22 11:30 36.9 C 74 18 131/74 98 Room Air 12/03/22 08:20 36.7 C 87 16 158/100 H 98 Room Air Diagnostic Findings Chest X-Ray 12/03/22 07:15 XR chest 1V portable HISTORY: 32 years-old Male f/u follow-up study in a patient with left-sided pneumothorax COMPARISON: 12/02/2022 TECHNIQUE: AP view of the chest FINDINGS: The left-sided chest tube has been pulled back, now with distal tip overlying the lateral aspect of left lung base. Left apical pneumothorax again noted with pleural separation of 3.5 cm, previously approximately 2.1 cm. The cardiomediastinal and hilar silhouettes are within normal limits. The right lung is clear. No pleural effusion or airspace consolidation. Bones appear grossly intact. IMPRESSION: Repositioning of the left-sided chest tube with slightly increased size of the left apical pneumothorax. ACT 112: Negative or not required by law. The above report was generated using voice recognition software. It may contain grammatical, syntax or spelling errors. Electronically signed by: Elie Willard M.D. 12/03/2022 8:[address] 12/03/22 10:33 CT OF THE CHEST WITHOUT IV CONTRAST CLINICAL HISTORY: Reposition chest tube, verify placement, PTX COMPARISON STUDY: Chest radiographs December 02, 2022 and December 03, 2022 at 7:[address] DOSE: 422.98 mGy.cm TECHNIQUE: Axial images of the chest were obtained without IV contrast. Images were reviewed in the axial, sagittal, and coronal planes. IV contrast was not administered for this examination. Automated exposure control was utilized for the study. A dose lowering technique was utilized adhering to the principles of ALARA. FINDINGS: Interval repositioning of the left chest tube is noted. The chest tube is within the lateral left mid hemithorax and is well-positioned. A small residual left pneumothorax is present. Subpleural opacities reflect atelectasis. No consolidation to suggest pneumonia. Central airways are patent. There is no right pneumothorax. No definite bleb or bulla within the left lung is noted to suggest the etiology for the pneumothorax. Visualized portions of the upper abdomen are unremarkable on this unenhanced examination. No fractures within the bony thorax. A 1.9 cm right lobe thyroid nodule is noted. IMPRESSION: 1. Interval repositioning of the left chest tube which is well-positioned. Small residual left pneumothorax. 2. Subpleural opacities within the lungs consistent with atelectasis. 3. No bleb or bulla within the left lung identified. 4. 1.9 cm hypodense right lobe thyroid nodule. Nonemergent thyroid ultrasound could be obtained for further evaluation. ACT 112: Negative or not required by law. Electronically signed by: Da Cevallos M.D. 12/03/2022 12:41 PM PG Care Time/CCT Total # of Minutes Spent Total Time Spent with Patient: Total time spent is greater than 50% in coordination of care (as documented) at patient's floor/unit and/or counseling patient: Coding Level of Care Code 37318 SUB INP/OBS CARE 08/19MIN Diagnoses Primary spontaneous pneumothorax J93.11 Thyroid nodule greater than or equal to 1.5 cm in diameter incidentally noted on imaging study E04.1
[2022-12-04] MEDS: KETOROLAC TROMETHAMINE 15 MG/ML VIAL IV PRN ×2 (02:56→20:32)
[2022-12-04 06:41] LABS: BUN Creatinine Ratio 20.4 (10-20); Calcium 8.6 mg/dl (8.6-10.3); Creatinine Clr Calc Pharmacy 113.9 ml/min; Est GFR (African American) 111.7 ml/min; Est GFR (Non-African American) 96.3 ml/min; Potassium 4.3 mmol/L (3.5-5.1)
[2022-12-04 06:54] LABS: Thyroid Stimulating Hormone 2.227 uIu/ml (0.300-4.500)
[2022-12-04 06:56] LABS: T4 Free Thyroxine 1.18 ng/dl (0.61-1.60)
--- NOTE | 2022-12-04 08:57 | XRay Report ---
XR chest 1V portable CLINICAL HISTORY: f/u COMPARISON STUDY: Chest radiograph and chest CT December 03, 2022. FINDINGS: Left pleural pigtail catheter remains in place. A small left pneumothorax has decreased in size since prior chest radiograph and chest CT. Superior pleural separation measures 1.4 cm. It previ ously measured 3.7 cm on prior chest radiograph. Left lower lobe airspace opacity has improved. Right lung is clear. IMPRESSION: 1. Left pleural catheter in place. Decrease in size of a small left pneumothorax. 2. Interval decrease in left lower lobe airspace opacity. ACT 112: Negative or not required by law. Electronically signed by: Da Cevallos M.D. 12/04/2022 8:55 AM
--- NOTE | 2022-12-04 10:56 | Pulmonology Progress Note ---
Date of Service December 04, 2022 Assessment & Plan (1) Primary spontaneous pneumothorax: (2) Pneumothorax: Pneumothorax type: spontaneous, primary Qualified Code(s): J93.11 - Primary spontaneous pneumothorax (3) SOB (shortness of breath): (4) Left-sided chest pain: Plan IMPRESSION: 32-year-old male presenting with primary spontaneous LEFT-sided pneumothorax who is status post pigtail catheter placement 12/02/2022 CT chest 12/03/2022 personally reviewed: Small left-sided pneumothorax, no clear blebs/cyst appreciated Accessory lobe in the left lower lobe, dependent atelectasis of the left lower lobe No mediastinal lymphadenopathy -- Primary spontaneous pneumothorax S/p chest tube placement 12/02/2022 Patient should avoid scuba diving, flying, heavy lifting for at least 6 weeks Plan:- Chest x-ray from today shows improvement in the left-sided pneumothorax Small left apical pneumothorax still persist. No air leak appreciated in the chest tube. Continue with negative suction. If chest x-ray tomorrow shows no significant change in size of the pneumothorax then we will plan to clamp the tube tomorrow morning. Please note the above document was generated using voice recognition software. It may contain grammatical, syntax or spelling errors.Any formal questions or concerns about the content, text or information contained within the body of this dictation should be directly addressed to the provider for clarification. Admission and Anticipated Discharge Date Admission Date: December 02, 2022 Subjective Patient seen and examined at bedside. No acute distress, no adverse events overnight Denies any chest pain. No shortness of breath Fair appetite No nausea vomiting No headache, no blurry vision Denies any cough Review of Systems Review of Systems: All systems reviewed & are unremarkable except as noted in Subjective Physical Exam Physical Exam: Constitutional: No acute distress HEENT: EOMI, PERRLA, no subcu emphysema Respiratory system: Good air entry bilaterally, no wheeze, no rhonchi, no crackles CVS: S1-S2 positive, no murmurs or gallops Abdomen: Soft, nontender, nondistended, positive bowel sounds x4 Extremities: +2 pulses bilaterally radialis/ dorsalis pedis, no cyanosis, no edema Neuro: Awake alert oriented x3 Psych: Normal mood and affect G/U: No Jimenes Skin: no rashes, warm and dry Lymphatic: no cervical or axillary lymphadenopathy Results & Data Results & Data Vital Signs (Past 12 Hours) Vital Signs Temp Pulse Pulse Resp BP Pulse Ox O2 Del Method 12/04/22 08:00 47 L 12/04/22 08:22 37.1 C 62 16 118/63 97 Room Air 12/04/22 02:47 36.6 C 50 L 15 124/69 98 Room Air 12/04/22 01:55 62 12/03/22 23:03 37.2 C 50 L 16 110/66 97 Room Air Laboratory Results 12/02/22 08:50 12/04/22 05:57 PG Care Time/CCT Total # of Minutes Spent Total Time Spent with Patient: Total time spent is greater than 50% in coordination of care (as documented) at patient's floor/unit and/or counseling patient: Coding Level of Care Code 99317 SUB INP/OBS CARE 2/35MIN Diagnoses Primary spontaneous pneumothorax J93.11 Pneumothorax J93.11 Pneumothorax type: spontaneous, primary SOB (shortness of breath) R06.02 Left-sided chest pain R07.9
[2022-12-04] MEDS: ACETAMINOPHEN 325 MG TAB PO PRN (14:18)
--- NOTE | 2022-12-04 19:19 | Hospitalist Progress Note ---
Date of Service December 04, 2022 Assessment & Plan (1) Primary spontaneous pneumothorax: Plan: s/p chest tube on left. appreciate pulmonary consultation & management of his chest tube. defer management to them. etiology of spontaneous pneumothorax uncertain. no obvious bleb(s) seen on CT chest but still possible that a bleb that ruptured was the cause of his event. no recent illness. does not smoke or vape. no recent trauma, no rib fractures, etc. no h/o lung disease. no overt features of connective tissue disease. air leak appears resolved. cxr today improved. will have repeat cxr tomorrow AM. likely suction will be stopped and tube clamped. if successful with no reaccumulation of pneumothorax hopefully chest tube can be removed tomorrow. (2) Thyroid nodule greater than or equal to 1.5 cm in diameter incidentally noted on imaging study: Plan: right sided 1.9cm thyroid nodule TFTs wnl no symptoms from the nodules send to [facility] Endocrinology at discharge for additional work-up, ?biopsy, etc Plan DVT proph - very low risk, defer on chemical DVT proph Admission and Anticipated Discharge Date Admission Date: December 02, 2022 Subjective pt denies any significant pain in the left chest with deep breaths minimal pain during my visit he had no air leak in the water seal chamber with coughing or deep exhalation no dyspnea or DONATO eating well Review of Systems Review of Systems: cv - no chest pain pulm - no dyspnea or DONATO GI - no pain Physical Exam Physical Exam: gen - WD, WN, NAD neck - no JVD heart - RRR, s1 s2, no murmur lungs - CTA b/l, left base with excellent airation; no crackles or wheeze abd - soft NT ND BS+ ext - no edema, pulses 2+ b/l Results & Data Results & Data Vital Signs (Past 12 Hours) Vital Signs Temp Pulse Pulse Resp BP Pulse Ox O2 Del Method 12/04/22 18:02 58 L 12/04/22 16:04 36.8 C 56 L 18 117/63 97 Room Air 12/04/22 12:02 36.4 C L 93 H 16 142/80 H 96 Room Air 12/04/22 08:00 47 L 12/04/22 08:22 37.1 C 62 16 118/63 97 Room Air Laboratory Results Laboratory Results - last 24 hr 12/04/22 12/04/22 05:57 05:57 Sodium 139 Potassium 4.3 Chloride 105 Carbon Dioxide 30 Anion Gap 4 BUN 21 Creatinine 1.03 Est Cr Clr Drug Dosing 113.9 Est GFR ( Amer) 111.7 Est GFR (Non-Af Amer) 96.3 BUN/Creatinine Ratio 20.4 H Glucose 91 Calcium 8.6 TSH 2.227 Free T4 1.18 Diagnostic Findings Chest X-Ray 12/04/22 07:00 XR chest 1V portable CLINICAL HISTORY: f/u COMPARISON STUDY: Chest radiograph and chest CT December 03, 2022. FINDINGS: Left pleural pigtail catheter remains in place. A small left pneumothorax has decreased in size since prior chest radiograph and chest CT. Superior pleural separation measures 1.4 cm. It previously measured 3.7 cm on prior chest radiograph. Left lower lobe airspace opacity has improved. Right lung is clear. IMPRESSION: 1. Left pleural catheter in place. Decrease in size of a small left pneumothorax. 2. Interval decrease in left lower lobe airspace opacity. ACT 112: Negative or not required by law. Electronically signed by: Da Cevallos M.D. 12/04/2022 8:55 AM PG Care Time/CCT Total # of Minutes Spent Total Time Spent with Patient: Total time spent is greater than 50% in coordination of care (as documented) at patient's floor/unit and/or counseling patient: Coding Level of Care Code 82155 SUB INP/OBS CARE 1/25MIN Diagnoses Primary spontaneous pneumothorax J93.11 Thyroid nodule greater than or equal to 1.5 cm in diameter incidentally noted on imaging study E04.1
[2022-12-05] MEDS: ACETAMINOPHEN 325 MG TAB PO PRN (07:37)
--- NOTE | 2022-12-05 09:55 | XRay Report ---
XR chest 1V portable CLINICAL HISTORY: f/u TECHNIQUE: Single frontal radiograph of the chest was obtained. Comparison: Comparison is made to chest radiograph 12/04/2022 FINDINGS: A left pleural catheter is again seen. The cardiomediastinal silhouette is normal. The lungs are jermaine r. Previously noted pneumothorax has almost completely resolved. IMPRESSION: Stable appearance of left pleural catheter with near total resolution of previously noted left pneumo thorax. ACT 112: Negative or not required by law. Electronically signed by: Mohinder Ball M.D. 12/05/2022 9:54 AM
--- NOTE | 2022-12-05 10:16 | Pulmonology Progress Note ---
Date of Service December 05, 2022 Assessment & Plan (1) Primary spontaneous pneumothorax: (2) Pneumothorax: Pneumothorax type: spontaneous, primary Qualified Code(s): J93.11 - Primary spontaneous pneumothorax (3) SOB (shortness of breath): (4) Left-sided chest pain: Plan IMPRESSION: 32-year-old male presenting with primary spontaneous LEFT-sided pneumothorax who is status post pigtail catheter placement 12/02/2022 CT chest 12/03/2022 personally reviewed: Small left-sided pneumothorax, no clear blebs/cyst appreciated Accessory lobe in the left lower lobe, dependent atelectasis of the left lower lobe No mediastinal lymphadenopathy -- Primary spontaneous pneumothorax S/p chest tube placement 12/02/2022 Patient should avoid scuba diving, flying, heavy lifting for at least 6 weeks Plan:- Chest x-ray from today does not show any signs of left-sided pneumothorax We will clamp the chest tube today. Repeat chest x-ray in 4-5 hours if there is no recurrence of normal then will take the tube out. Please note the above document was generated using voice recognition software. It may contain grammatical, syntax or spelling errors.Any formal questions or concerns about the content, text or information contained within the body of this dictation should be directly addressed to the provider for clarification. Admission and Anticipated Discharge Date Admission Date: December 02, 2022 Subjective Patient seen and examined at bedside. No acute distress, no adverse events overnight Does complain of mild chest pain when he takes deep breath in. No coughing No nausea vomiting Fair appetite Review of Systems Review of Systems: All systems reviewed & are unremarkable except as noted in Subjective Physical Exam Physical Exam: Constitutional: No acute distress HEENT: EOMI, PERRLA, no subcu emphysema Respiratory system: Good air entry bilaterally, no wheeze, no rhonchi, no crackles CVS: S1-S2 positive, no murmurs or gallops Abdomen: Soft, nontender, nondistended, positive bowel sounds x4 Extremities: +2 pulses bilaterally radialis/ dorsalis pedis, no cyanosis, no e trae Neuro: Awake alert oriented x3 Psych: Normal mood and affect G/U: No Jimenes Skin: no rashes, warm and dry Lymphatic: no cervical or axillary lymphadenopathy Results & Data Results & Data Vital Signs (Past 12 Hours) Vital Signs Temp Pulse Pulse Resp BP Pulse Ox O2 Del Method 12/05/22 07:00 44 L 12/05/22 08:15 36.5 C 59 L 16 123/76 98 Room Air 12/05/22 04:00 36.4 C L 47 L 18 107/63 98 Room Air 12/04/22 23:00 37.2 C 52 L 18 118/76 96 Room Air 12/04/22 23:24 57 L Laboratory Results 12/02/22 08:50 12/04/22 05:57 PG Care Time/CCT Total # of Minutes Spent Total Time Spent with Patient: Total time spent is greater than 50% in coordination of care (as documented) at patient's floor/unit and/or counseling patient: Coding Level of Care Code 84932 SUB INP/OBS CARE 2/35MIN Diagnoses Primary spontaneous pneumothorax J93.11 Pneumothorax J93.11 Pneumothorax type: spontaneous, primary SOB (shortness of breath) R06.02 Left-sided chest pain R07.9
--- NOTE | 2022-12-05 14:40 | Procedure Note ---
Procedure Note Date of Service December 05, 2022 Note Procedure: Pigtail chest tube removal Flat Surfacer Jewel: Dr. Karen Lane Indication: No pneumothorax s/p clamping of the cube Consent: Verbal consent obtained Procedure: Under aseptic precautions, dressing of the chest tube was removed. The pigtail catheter flared was loosened. On exhalation, chest tube was removed. Was found to be intact Vaseline gauze was applied followed by 4 x 4 and silk tape for dressing Patient tolerated the procedure well Complications: None Blood loss: None Coding CPT Codes Pulmonary/Thoracic - Pulmonary and Thoracic: 54817 Remove lung catheter ([id number]) [facility] Procedure Codes (Charges) Pulmonary/Thoracic Procedure 1: Pulmonary and Thoracic: 13821 Remove lung catheter
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
--- NOTE | 2022-12-05 20:45 | XRay Report ---
XR chest 1V portable CLINICAL HISTORY: chest tube clamped TECHNIQUE: Single frontal radiograph of the chest was obtained. Comparison: Comparison is made to chest radiograph 12/06/2019 FINDINGS: Left pleural catheter is again seen. The cardiomediastinal silhouette is normal. The lungs are clear. Previously noted trace pneumothorax is unchanged to slightly decreased. IMPRESSION: Stability to improvement in previously noted trace pneumothorax. Stable left chest tube. ACT 112: Negative or not required by law. Electronically signed by: Mohinder Ball M.D. 12/05/2022 8:44 PM
== END 2022-12-05 04:15 | disposition home or self-care (01) | DRG 201 ==
LOC: ED 08:23 → 2N 11:38 → SUATTDRO 11:38 → 2N 13:52